=== PATIENT | male | born 1975 | race Caucasian/White ===

== ENCOUNTER 2022-07-20 15:42 | Emergency (ER) | payer SELFPAY ==
[2022-07-20] MEDS ORDERED: Ketorolac Tromethamine 30 MG/ML VIAL ONE (17:09)
[2022-07-20] MEDS ORDERED: Dexamethasone 4 MG TAB ONE (17:11)
== END 2022-07-20 17:34 | disposition home or self-care (01) ==
LOC: ERS 15:42
DX: R07.81 Pleurodynia (principal); F17.210 Nicotine dependence, cigarettes, uncomplicated
CPT/HCPCS: 96372; J1885; J8540